=== PATIENT | male | born 1975 | race African-American/Black ===

== ENCOUNTER 2018-08-10 01:16 | Emergency (ER) | payer OTHER ==
[~2018-08-10] VITALS: Ht 167.6 cm; Wt 86.2 kg
[2018-08-10] MEDS ORDERED: CIPROFLOXIN HC2.5 M1 OTIC (02:12)
[2018-08-10 02:24] VITALS: BP 122/74
== END 2018-08-10 02:24 | disposition home or self-care (01) ==
LOC: M.ERS 01:16
DX: H61.23 Impacted cerumen, bilateral (principal)

== ENCOUNTER 2018-10-06 15:19 | Emergency (ER) | payer OTHER ==
[~2018-10-06] VITALS: Ht 167.6 cm; Wt 90.7 kg
[~2018-10-06 15:19] MED LIST: CIPROFLOXIN HC2.5 M1 OTIC
[2018-10-06] MEDS ORDERED: NOHOMEMEDICATIONS (15:29)
[2018-10-06 16:07] VITALS: BP 133/74
== END 2018-10-06 16:07 | disposition home or self-care (01) ==
LOC: M.ERS 15:19
DX: R51 Headache (principal)